=== PATIENT | female | born 1945 | race Caucasian/White ===

== ENCOUNTER 2017-03-09 14:54 | Emergency (ER) | payer OTHER ==
[~2017-03-09] VITALS: Ht 154.9 cm; Wt 82.7 kg
[~2017-03-09 14:54] MED LIST: AMLODIPINE BES2.5 MG; CELEBREX200 MG; CRESTOR20 MG PO; FENOFIBRATE160 M1; K-DUR20 MEQ PO; LOTENSIN20 M1 PO; RANITIDINE HCL150 M1 PO
[2017-03-09 16:27] LABS: BASOPHIL COUNT 0.1 K/uL (0-0.1); EOSINOPHIL (%) 1.5 % (0-5); EOSINOPHIL COUNT 0.1 K/uL (0-0.3); IMMATURE GRANULOCYTE (%) 0.6 % (0.0-0.7); IMMATURE GRANULOCYTE COUNT 0.1 K/uL; INSTRUMENT ABS NEUTROPHIL CT 5.6 K/uL; LYMPHOCYTE COUNT 1.3 K/uL (1.0-2.8); MCH 31.3 PG (29.0-34.0); MCHC 35.1 G/DL (30.0-36.0); MCV 89.1 FL (83-99); MONOCYTE COUNT 0.7 K/uL (0-0.8); NEUTROPHIL (%) 71.7 % (45-76); NEUTROPHIL COUNT 5.6 K/uL (1.8-6.4); PLATELET COUNT 157 K/uL (156-360); RBC DIS.WIDTH-SD 39.6 % (39-53); WHITE BLOOD COUNT 7.9 K/uL (4.1-10.2)
[2017-03-09 16:35] LABS: CHLORIDE 105 mEq/L (99-109); POTASSIUM 3.7 mEq/L (3.7-5.4); SODIUM 141 mEq/L (136-147)
[2017-03-09 16:37] LABS: GLUCOSE 184 mg/dL (70-99)
[2017-03-09 16:38] LABS: ANION GAP 12 MEQ/L (2-14)
[2017-03-09 16:41] LABS: GFR ESTIMATE (CALCULATED) > 59 mL/min/
[2017-03-09 16:42] LABS: UREA NITROGEN (BUN) 11 mg/dL (9-23)
[2017-03-09 18:16] LABS: POINT-OF-CARE METER ID UU13113702
[2017-03-09] MEDS ORDERED: PREDNISONE20 MG PO (19:12)
[2017-03-09] MEDS ORDERED: VALTREX1000 MG PO (19:12)
[2017-03-09 20:30] VITALS: BP 158/65
== END 2017-03-09 20:00 | disposition home or self-care (01) ==
LOC: EME 14:54
PROVIDERS: Emergency Medicine
DX: G51.0 Bell's palsy (principal); I10 Essential (primary) hypertension; E11.9 Type 2 diabetes mellitus without complications; K21.9 Gastro-esophageal reflux disease without esophagitis; E78.5 Hyperlipidemia, unspecified; Z86.73 Personal history of transient ischemic attack (TIA), and cerebral infarction without residual deficits; Z95.820 Peripheral vascular angioplasty status with implants and grafts
CPT/HCPCS: 70450; 70551; 80048; 82948; 85025; 93005; 99281; 99285; J7512

== ENCOUNTER 2017-10-02 23:09 | Emergency (ER) | payer OTHER ==
[~2017-10-02] VITALS: Ht 157.5 cm; Wt 85.4 kg
[~2017-10-02 23:09] MED LIST changes: +PREDNISONE20 MG PO; +VALTREX1000 MG PO
[2017-10-03 00:04] LABS: HEMATOCRIT 38.5 % (36.0-46.0); HEMOGLOBIN 13.9 G/DL (11.9-15.5); MCHC 36.1 G/DL (30.0-36.0); MCV 88.7 FL (83-99); PLATELET COUNT 94 K/uL (156-360); RBC DIS.WIDTH-CV 12.3 % (11.8-14.6); RBC DIS.WIDTH-SD 40.8 % (39-53); RED BLOOD COUNT 4.34 M/uL (3.80-5.20); WHITE BLOOD COUNT 3.4 K/uL (4.1-10.2)
[2017-10-03 00:23] LABS: CHLORIDE 103 mEq/L (99-109); POTASSIUM 3.8 mEq/L (3.7-5.4); SODIUM 137 mEq/L (136-147)
[2017-10-03 00:25] LABS: GLUCOSE 198 mg/dL (70-99)
[2017-10-03 00:29] LABS: CREATININE 0.9 mg/dL (0.6-1.3); GFR ESTIMATE (CALCULATED) > 59 mL/min/
[2017-10-03 00:30] LABS: UREA NITROGEN (BUN) 10 mg/dL (9-23)
[2017-10-03 04:55] LABS: APPEARANCE SL.HAZY ((CLEAR)); BILIRUBIN NEGATIVE; BLOOD NEGATIVE; COLOR YELLOW ((YELLOW)); GLUCOSE (STRIP) NEGATIVE; KETONES NEGATIVE; LEUKOCYTES LARGE; NITRITE NEGATIVE; PROTEIN (STRIP) NEGATIVE; SPECIFIC GRAVITY 1.009 (1.000-1.030); UROBILINOGEN 0.2 MG/DL (0.2-1.0)
[2017-10-03 05:18] LABS: RED BLOOD CELLS 0-5 /HPF (0-5)
[2017-10-03 05:19] LABS: BACTERIA 1+ /HPF; EPITHELIAL CELLS 1+ /HPF; MUCUS 1+ /LPF; UCUL ADDED? YES; WHITE BLOOD CELLS 20-30 /HPF (0-5)
[2017-10-03] MEDS ORDERED: KEFLEX500 MG PO (05:23)
[2017-10-03] MEDS ORDERED: AUGMENTIN875 MG PO (05:30)
[2017-10-03 05:53] VITALS: BP 140/70
== END 2017-10-03 05:54 | disposition home or self-care (01) ==
LOC: EME 23:09
DX: N39.0 Urinary tract infection, site not specified (principal); T82.898A Other specified complication of vascular prosthetic devices, implants and grafts, initial encounter; R42 Dizziness and giddiness; E11.9 Type 2 diabetes mellitus without complications; E78.5 Hyperlipidemia, unspecified; I10 Essential (primary) hypertension; K21.9 Gastro-esophageal reflux disease without esophagitis; Z86.73 Personal history of transient ischemic attack (TIA), and cerebral infarction without residual deficits
CPT/HCPCS: 70450; 71046; 74176; 80048; 81003; 85027; 87086; 93005; 99281; 99284

== ENCOUNTER 2018-01-22 07:34 | Emergency (ER) | payer OTHER ==
[~2018-01-22] VITALS: Ht 157.5 cm; Wt 79.7 kg
[~2018-01-22 07:34] MED LIST changes: +AUGMENTIN875 MG PO; +KEFLEX500 MG PO
[2018-01-22] MEDS ORDERED: NAPHCON-A EYE D15 ML LEFT EYE (09:30)
[2018-01-22 09:39] VITALS: BP 179/79
== END 2018-01-22 09:39 | disposition home or self-care (01) ==
LOC: EME 07:34
DX: H57.8 Other specified disorders of eye and adnexa (principal); S46.912A Strain of unspecified muscle, fascia and tendon at shoulder and upper arm level, left arm, initial encounter; E11.9 Type 2 diabetes mellitus without complications; E78.5 Hyperlipidemia, unspecified; Z86.73 Personal history of transient ischemic attack (TIA), and cerebral infarction without residual deficits; K21.9 Gastro-esophageal reflux disease without esophagitis; X50.9XXA Other and unspecified overexertion or strenuous movements or postures, initial encounter
CPT/HCPCS: 73030; 93005; 99281; 99283